=== PATIENT | female | born 1990 | race American Indian/Alaskan Native ===

== ENCOUNTER 2016-12-28 06:46 | Emergency (ER) | payer OTHER ==
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
[2016-12-28 14:19] VITALS: BP 112/77
== END 2016-12-28 14:18 | disposition home or self-care (01) ==
LOC: ED 06:46
DX: R55 Syncope and collapse (principal)
CPT/HCPCS: 36415; 84443; 93005; 93010; 99283